=== PATIENT | female | born 1985 | race Two or more races ===

== ENCOUNTER 2017-07-16 20:53 | Emergency (ER) | payer OTHER ==
[~2017-07-16] VITALS: Ht 165.1 cm; Wt 59.0 kg
[2017-07-17] MEDS ORDERED: PHENERGAN25 MG PO (04:50)
[2017-07-17] MEDS ORDERED: PEPCID40 MG PO (04:50)
== END 2017-07-17 04:44 | disposition home or self-care (01) ==
LOC: ER 20:53
DX: T61.771A Other fish poisoning, accidental (unintentional), initial encounter (principal); K52.1 Toxic gastroenteritis and colitis; E86.0 Dehydration; R11.2 Nausea with vomiting, unspecified; Y92.89 Other specified places as the place of occurrence of the external cause

== ENCOUNTER 2017-10-27 08:48 | Outpatient (CLI) | payer OTHER ==
[~2017-10-27 08:48] MED LIST: PEPCID40 MG PO; PHENERGAN25 MG PO
== END 2017-10-27 10:20 | disposition home or self-care (01) ==
LOC: SONOGRAMA 08:48
DX: E04.2 Nontoxic multinodular goiter (principal)

== ENCOUNTER 2018-11-11 12:31 | Outpatient (CLI) | payer OTHER ==
[~2018-11-11] VITALS: Ht 165.1 cm; Wt 63.5 kg
[2018-11-11] MEDS ORDERED: AYR SALINE NA14.1 GM NASAL (12:36)
[2018-11-11] MEDS ORDERED: AFRIN15 ML NASAL (12:36)
== END 2018-11-11 16:03 | disposition home or self-care (01) ==
LOC: OFIC 805 12:31
DX: H93.13 Tinnitus, bilateral (principal); R04.0 Epistaxis; J31.0 Chronic rhinitis

== ENCOUNTER 2021-09-04 19:31 | Emergency (ER) | payer OTHER ==
[~2021-09-04] VITALS: Ht 165.1 cm; Wt 68.0 kg
[~2021-09-04 19:31] MED LIST changes: +AFRIN15 ML NASAL; +AYR SALINE NA14.1 GM NASAL
[2021-09-04] MEDS ORDERED: NORFLEX100MG PO (22:49)
[2021-09-04] MEDS ORDERED: CYCLOBENZAPRINE10 MG PO (22:49)
[2021-09-04] MEDS ORDERED: KETO10TA2 PO (22:50)
== END 2021-09-04 22:55 | disposition home or self-care (01) ==
LOC: ER 19:31
DX: M54.9 Dorsalgia, unspecified (principal)

== ENCOUNTER 2021-11-22 08:36 | Outpatient (CLI) | payer OTHER ==
[~2021-11-22 08:36] MED LIST changes: +CYCLOBENZAPRINE10 MG PO; +KETO10TA2 PO; +NORFLEX100MG PO
== END 2021-11-22 08:39 | disposition home or self-care (01) ==
LOC: SONOGRAMA 08:36
PROVIDERS: ATTEND Pathology Anatomic Pathology & Clinical Pathology
DX: E04.1 Nontoxic single thyroid nodule (principal)

== ENCOUNTER 2024-05-24 08:17 | Outpatient (CLI) | payer OTHER | END 2024-05-24 08:20 | disposition home or self-care (01) | LOC: PRENATAL 08:17 | PROVIDERS: ATTEND Obstetrics & Gynecology Maternal & Fetal Medicine | DX: O36.80X0 Pregnancy with inconclusive fetal viability, not applicable or unspecified (principal); Z36.82 Encounter for antenatal screening for nuchal translucency; O09.519 Supervision of elderly primigravida, unspecified trimester; Z14.8 Genetic carrier of other disease; O34.10 Maternal care for benign tumor of corpus uteri, unspecified trimester; Z3A.13 13 weeks gestation of pregnancy ==

== ENCOUNTER 2024-07-05 08:46 | Outpatient (CLI) | payer OTHER | END 2024-07-05 08:47 | disposition home or self-care (01) | LOC: PRENATAL 08:46 | PROVIDERS: ATTEND Obstetrics & Gynecology Maternal & Fetal Medicine | DX: O44.00 Complete placenta previa NOS or without hemorrhage, unspecified trimester (principal); O09.519 Supervision of elderly primigravida, unspecified trimester; O34.10 Maternal care for benign tumor of corpus uteri, unspecified trimester; Z3A.20 20 weeks gestation of pregnancy ==

== ENCOUNTER 2024-09-28 08:27 | Outpatient (CLI) | payer OTHER | END 2024-09-28 08:28 | disposition home or self-care (01) | LOC: PRENATAL 08:27 | PROVIDERS: ATTEND Obstetrics & Gynecology Maternal & Fetal Medicine | DX: O26.849 Uterine size-date discrepancy, unspecified trimester (principal); O36.8199 Decreased fetal movements, unspecified trimester, other fetus; O09.519 Supervision of elderly primigravida, unspecified trimester; O34.10 Maternal care for benign tumor of corpus uteri, unspecified trimester; Z3A.32 32 weeks gestation of pregnancy ==

== ENCOUNTER 2024-11-06 22:37 | Inpatient (IN) | payer OTHER ==
[~2024-11-06] VITALS: Ht 165.1 cm; Wt 75.3 kg
[2024-11-06 21:13] VITALS: BP 123/67
[2024-11-06] MEDS ORDERED: PRENATAL CAPLE1 EAC1 PO (22:59)
[2024-11-06] MEDS ORDERED: CHILDREN'S ASPI81 MG PO (22:59)
[2024-11-06] MEDS ORDERED: VITAMIN D310 MCG/1 M PO (23:00)
[2024-11-06] MEDS ORDERED: RINGERS SOLUTION,LACTATED 1,000 ML IV SCH (23:00)
[2024-11-06] MEDS ORDERED: AMPICILLIN SODIUM 2,000 MG VIAL IV ONE (23:00)
[2024-11-06 23:23] LABS: BASO % 0.2 % (0.1-1.2); EOS # 0.19 (0.04-0.54); EOS % 1.5 % (0.7-7.0); LYMPH # 1.99 (1.18-3.74); LYMPH % 15.4 % (19.3-53.1); MEAN PLATELET VOLUME 10.60 fl (9.4-12.4); MONO # 0.94 (0.24-0.82); MONO % 7.3 % (4.7-12.5); NEUT # 9.60 (1.56-6.13); NEUT % 74.1 % (34.0-71.1); RED CELL DISTRIBUTION WIDTH 14.1 % (11.6-14.4)
[2024-11-06 23:25] VITALS: BP 138/81
[2024-11-06 23:45] LABS: INR < 0.93
[2024-11-06 23:51] LABS: ALT/SGPT 17.0 U/L (12-78); AST/SGOT 18.0 U/L (15-37); BILIRUBIN TOTAL 0.5 mg/dL (0.3-1.2); BUN CREA RATIO 15.0 (7.0-25.0); CREATININE SERUM 0.52 mg/dL (0.55-1.02); GFR 132.69; GLOBULINA 3.8 G/DL (2.4-3.5); GLUCOSE FASTING 99.0 mg/dL (65-100); OSMOLALITY SERUM 278.0 MOSM/KG (275-295)
[2024-11-07] VITALS (8 sets, daily range): BP systolic 111–136; BP diastolic 58–81
[2024-11-07] MEDS ORDERED: MORPHINE SULFATE 4 MG/ML CARTRIDGE IV ONE (02:00)
[2024-11-07 02:31] LABS: URINE APPEARANCE Clear; URINE BILIRRUBIN Negative (NEGATIVE); URINE BLOOD Moderate; URINE COLOR Yellow; URINE GLUCOSE Negative (NEGATIVE); URINE KETONE Negative (NEGATIVE); URINE LEUKOCYTE Negative; URINE NITRATE Negative; URINE PROTEIN Negative (NEGATIVE); URINE UROBILINOGEN 0.2 E.U./dl
[2024-11-07 02:34] LABS: URINE BACTERIA 111.5 uL (0.0-1933); URINE EPITHELIAL CELLS 16.1 uL (0.0-38.8); URINE RBC 232.8 uL (0.0-20.8); URINE WBC 15.9 uL (0.0-23.2)
[2024-11-07 02:45] LABS: TYPE CELLS SQUAMOUS; URINE CAST 0.29 uL (0.0-1.40)
[2024-11-07] MEDS ORDERED: AMPICILLIN SODIUM 1,000 MG VIAL IV SCH (04:00)
[2024-11-07] MEDS ORDERED: MORPHINE SULFATE 4 MG/ML VIAL IV ONE (08:00)
[2024-11-07] MEDS ORDERED: OXYTOCIN 500 ML IV SCH (09:45)
[2024-11-07] MEDS ORDERED: OXYTOCIN 20 UNITS/1000ML RL PIGGYBAG IV SCH (14:00)
[2024-11-07] MEDS ORDERED: ERYTHROMYCIN BASE OPHT 1GM EACH TUBE OP ONE (14:00)
[2024-11-07] MEDS ORDERED: CHLORHEXIDINE GLUCONATE 120 ML BOTTLE TOP ONE (14:00)
[2024-11-07] MEDS ORDERED: LIDOCAINE HCL 1% 10ML VIAL PERCUT ONE (14:00)
[2024-11-08] VITALS: BP 107/68; BP 122/73
[2024-11-08 08:15] LABS: BASO % 0.3 % (0.1-1.2); EOS # 0.09 (0.04-0.54); EOS % 0.4 % (0.7-7.0); LYMPH # 2.00 (1.18-3.74); LYMPH % 9.5 % (19.3-53.1); MEAN PLATELET VOLUME 9.70 fl (9.4-12.4); MONO # 1.12 (0.24-0.82); MONO % 5.3 % (4.7-12.5); NEUT # 17.62 (1.56-6.13); NEUT % 83.7 % (34.0-71.1); RED CELL DISTRIBUTION WIDTH 14.1 % (11.6-14.4)
[2024-11-08 08:37] VITALS: BP 126/76; O2SAT 99
[2024-11-08 18:30] VITALS: BP 118/74
[2024-11-09 00:06] VITALS: BP 121/73
[2024-11-09 08:20] VITALS: BP 120/78
[2024-11-09] MEDS ORDERED: IBU800 MG PO (08:45)
[2024-11-09] MEDS ORDERED: FUSION PLUS CA1 EACH PO (08:46)
== END 2024-11-09 11:00 | disposition home or self-care (01) | DRG 807 ==
LOC: LDR 22:37 → OB/GYN 22:37
PROVIDERS: Obstetrics & Gynecology; Specialist; ADMIT Obstetrics & Gynecology; ATTEND Obstetrics & Gynecology
PROC: 4A1HXCZ Monitoring of Products of Conception, Cardiac Rate, External Approach (ICD-10-PCS; 2024-11-06)
PROC: 10E0XZZ Delivery of Products of Conception, External Approach (ICD-10-PCS; principal; 2024-11-07)
PROC: 0W8NXZZ Division of Female Perineum, External Approach (ICD-10-PCS; 2024-11-07)
DX: O80 Encounter for full-term uncomplicated delivery (principal); Z37.0 Single live birth; Z3A.37 37 weeks gestation of pregnancy

== ENCOUNTER 2024-11-10 17:23 | Emergency (ER) | payer OTHER ==
[~2024-11-10] VITALS: Ht 165.1 cm; Wt 72.6 kg
[~2024-11-10 17:23] MED LIST changes: +CHILDREN'S ASPI81 MG PO; +FUSION PLUS CA1 EACH PO; +IBU800 MG PO; +PRENATAL CAPLE1 EAC1 PO; +VITAMIN D310 MCG/1 M PO
[2024-11-10 20:23] LABS: BASO % 0.4 % (0.1-1.2); EOS # 0.32 (0.04-0.54); EOS % 2.0 % (0.7-7.0); LYMPH # 1.77 (1.18-3.74); LYMPH % 10.8 % (19.3-53.1); MEAN PLATELET VOLUME 9.40 fl (9.4-12.4); MONO # 0.85 (0.24-0.82); MONO % 5.2 % (4.7-12.5); NEUT # 12.81 (1.56-6.13); NEUT % 78.1 % (34.0-71.1); RED CELL DISTRIBUTION WIDTH 14.1 % (11.6-14.4)
[2024-11-10 20:50] LABS: COVID-19 AG NEGATIVE (NEGATIVE)
[2024-11-10 20:52] LABS: ALT/SGPT 30.0 U/L (12-78); AST/SGOT 34.0 U/L (15-37); BILIRUBIN TOTAL 0.55 mg/dL (0.3-1.2); BUN CREA RATIO 18.0 (7.0-25.0); CREATININE SERUM 0.51 mg/dL (0.55-1.02); GFR 135.69; GLOBULINA 3.4 G/DL (2.4-3.5); GLUCOSE FASTING 93.0 mg/dL (65-100); OSMOLALITY SERUM 274.0 MOSM/KG (275-295)
[2024-11-10 21:09] LABS: URINE APPEARANCE Clear; URINE BILIRRUBIN Negative (NEGATIVE); URINE BLOOD Small; URINE COLOR Yellow; URINE GLUCOSE Negative (NEGATIVE); URINE KETONE Negative (NEGATIVE); URINE LEUKOCYTE Trace; URINE NITRATE Negative; URINE PROTEIN Negative (NEGATIVE); URINE UROBILINOGEN 0.2 E.U./dl
[2024-11-10 21:13] LABS: URINE BACTERIA 29.9 uL (0.0-1933); URINE EPITHELIAL CELLS 2.9 uL (0.0-38.8); URINE RBC 3.9 uL (0.0-20.8); URINE WBC 6.1 uL (0.0-23.2)
[2024-11-10 21:26] LABS: URINE CAST 0.00 uL (0.0-1.40)
== END 2024-11-10 22:58 | disposition home or self-care (01) ==
LOC: ER 17:29
PROVIDERS: Emergency Medicine
DX: R07.9 Chest pain, unspecified (principal); R60.0 Localized edema; O48.0 Post-term pregnancy; Z20.822 Contact with and (suspected) exposure to COVID-19

== ENCOUNTER 2025-03-28 01:12 | Inpatient (IN) | payer OTHER ==
[~2025-03-28] VITALS: Ht 165.1 cm; Wt 67.6 kg
--- NOTE | 2025-03-28 02:29 | NUR ---
PTE ALERTA Y ORIENTADA X3 REFIERE VENIR A REID DE ERMERGENCIAS DEBIDO A QUE ANDERSON DESD HACE 4 MESES QUE LIA A RENU ANDERSON ESTADO [place] Y EN ESTOS MENSAH A COMENZADO A TENER DOLOR ABDOMINAL Y MAREOS. SE MIDEN S/V Y SE UBICA.
--- NOTE | 2025-03-28 04:24 | NUR ---
DR. POLK EVALUA PTE, AL MOMENTO ORDENA ESTUDIOS DE IMAGEN YA NOTIFICADOS.
[2025-03-28] MEDS ORDERED: 0.9 % SODIUM CHLORIDE 1,000 ML IV ONE ×2 (05:30→08:45)
--- NOTE | 2025-03-28 05:30 | NUR ---
SE ORIENTA A PACIENTE SOBRE ORDEN MEDICA LA MISMA REFIERE ENTEDER Y ACEPTA.
[2025-03-28 06:15] LABS: BASO % 0.5 % (0.1-1.2); EOS # 0.05 (0.04-0.54); EOS % 0.5 % (0.7-7.0); LYMPH # 1.20 (1.18-3.74); LYMPH % 11.4 % (19.3-53.1); MEAN PLATELET VOLUME 9.30 fl (9.4-12.4); MONO # 0.45 (0.24-0.82); MONO % 4.3 % (4.7-12.5); NEUT # 8.76 (1.56-6.13); NEUT % 82.9 % (34.0-71.1); RED CELL DISTRIBUTION WIDTH 14.7 % (11.6-14.4)
[2025-03-28 06:50] LABS: INR 0.95
[2025-03-28 06:54] LABS: ALT/SGPT 14.0 U/L (12-78); AST/SGOT 14.0 U/L (15-37); BILIRUBIN TOTAL 0.5 mg/dL (0.3-1.2); BUN CREA RATIO 13.0 (7.0-25.0); CREATININE SERUM 0.63 mg/dL (0.55-1.02); GFR 105.76; GLOBULINA 4.3 G/DL (2.4-3.5); GLUCOSE FASTING 105.0 mg/dL (65-100); OSMOLALITY SERUM 280.0 MOSM/KG (275-295)
[2025-03-28 07:01] LABS: URINE APPEARANCE Clear; URINE BILIRRUBIN Negative (NEGATIVE); URINE BLOOD Large; URINE COLOR Yellow; URINE GLUCOSE Negative (NEGATIVE); URINE KETONE Negative (NEGATIVE); URINE LEUKOCYTE Negative; URINE NITRATE Negative; URINE PROTEIN Negative (NEGATIVE); URINE UROBILINOGEN 0.2 E.U./dl
[2025-03-28 07:10] LABS: URINE BACTERIA 23.9 uL (0.0-1933); URINE RBC 9.8 uL (0.0-20.8); URINE WBC 2.1 uL (0.0-23.2)
[2025-03-28 07:18] LABS: URINE CAST 0.00 uL (0.0-1.40); URINE EPITHELIAL CELLS 1.0 uL (0.0-38.8)
[2025-03-28] MEDS ORDERED: METRONIDAZOLE/SODIUM CHLORIDE 500 MG/100 ML PIGGYBACK IV SCH (08:41)
[2025-03-28] MEDS ORDERED: POVIDONE-IODINE 118 ML BOTT TOP ONE (19:15)
[2025-03-28] MEDS ORDERED: PROMETHAZINE HCL 50 MG/ML AMPUL IM PRN (20:00)
[2025-03-29 01:03] VITALS: BP 104/71; O2SAT 99
== END 2025-03-29 00:45 | disposition home or self-care (01) | DRG 743 ==
LOC: ER 01:13 → SEC-K 09:17
PROVIDERS: Preventive Medicine Public Health & General Preventive Medicine; ADMIT Obstetrics & Gynecology; ATTEND Obstetrics & Gynecology
PROC: BW21ZZZ Computerized Tomography (CT Scan) of Abdomen and Pelvis (ICD-10-PCS; 2025-03-28)
PROC: BU4CZZZ Ultrasonography of Uterus and Ovaries (ICD-10-PCS; 2025-03-28)
PROC: 0UB98ZZ Excision of Uterus, Via Natural or Artificial Opening Endoscopic (ICD-10-PCS; principal; 2025-03-28 20:00)
DX: N84.0 Polyp of corpus uteri (principal)

== ENCOUNTER 2025-04-20 01:08 | Emergency (ER) | payer OTHER ==
[~2025-04-20] VITALS: Ht 165.1 cm; Wt 68.0 kg
[2025-04-20] MEDS ORDERED: LEVALBUTEROL HCL 0.63 MG/3 ML SOLUTION IH STA (04:03)
[2025-04-20] MEDS ORDERED: MECLIZINE HCL 25 MG TABLET PO STA (04:03)
[2025-04-20] MEDS ORDERED: LEVALBUTEROL HCL 0.63 MG/3 ML SOLUTION IH SCH (04:04)
[2025-04-20] MEDS ORDERED: MECLIZINE HCL 25 MG TABLET PO ONE (04:05)
[2025-04-20] MEDS ORDERED: 0.9 % SODIUM CHLORIDE 1,000 ML IV ONE (04:15)
[2025-04-20 04:37] LABS: BASO % 0.6 % (0.1-1.2); EOS # 0.38 (0.04-0.54); EOS % 2.4 % (0.7-7.0); LYMPH # 2.48 (1.18-3.74); LYMPH % 15.8 % (19.3-53.1); MEAN PLATELET VOLUME 8.90 fl (9.4-12.4); MONO # 0.81 (0.24-0.82); MONO % 5.2 % (4.7-12.5); NEUT # 11.84 (1.56-6.13); NEUT % 75.6 % (34.0-71.1); RED CELL DISTRIBUTION WIDTH 14.6 % (11.6-14.4)
[2025-04-20 04:39] LABS: URINE APPEARANCE Clear; URINE BILIRRUBIN Negative (NEGATIVE); URINE BLOOD Negative; URINE COLOR Yellow; URINE GLUCOSE Negative (NEGATIVE); URINE KETONE Negative (NEGATIVE); URINE LEUKOCYTE Negative; URINE NITRATE Negative; URINE PROTEIN Negative (NEGATIVE); URINE UROBILINOGEN 0.2 E.U./dl
[2025-04-20 04:42] LABS: URINE BACTERIA 38.7 uL (0.0-1933); URINE EPITHELIAL CELLS 2.2 uL (0.0-38.8); URINE RBC 2.5 uL (0.0-20.8)
[2025-04-20 04:54] LABS: URINE CAST 0.00 uL (0.0-1.40); URINE WBC 1.2 uL (0.0-23.2)
[2025-04-20 04:55] LABS: COVID-19 AG NEGATIVE (NEGATIVE)
[2025-04-20 04:57] LABS: INR 0.97
[2025-04-20 05:03] LABS: ALT/SGPT 18 U/L (12-78); AST/SGOT 8 U/L (15-37); BILIRUBIN TOTAL 0.69 mg/dL (0.3-1.2); BUN CREA RATIO 46 (7.0-25.0); CREATININE SERUM 0.52 mg/dL (0.55-1.02); GFR 131.97; GLOBULINA 4.3 G/DL (2.4-3.5); GLUCOSE FASTING 103 mg/dL (65-100); OSMOLALITY SERUM 282 MOSM/KG (275-295)
[2025-04-20 05:05] LABS: HCG QUANTITATIVE < 1 mUI/mL (1-3)
[2025-04-20] MEDS ORDERED: LEVALBUTER0.63 MG/3 IH (07:28)
[2025-04-20] MEDS ORDERED: PEDIALYTE ADV1000 ML PO (07:28)
== END 2025-04-20 08:39 ==
LOC: ER 01:09
PROVIDERS: General Practice
DX: E86.0 Dehydration (principal); R42 Dizziness and giddiness; R20.2 Paresthesia of skin; R06.02 Shortness of breath

== ENCOUNTER 2025-04-26 19:28 | Emergency (ER) | payer OTHER ==
[~2025-04-26] VITALS: Ht 165.1 cm; Wt 68.0 kg
[~2025-04-26 19:28] MED LIST changes: +LEVALBUTER0.63 MG/3 IH; +PEDIALYTE ADV1000 ML PO
[2025-04-26 22:22] LABS: BASO % 0.6 % (0.1-1.2); EOS # 0.30 (0.04-0.54); EOS % 2.9 % (0.7-7.0); LYMPH # 2.38 (1.18-3.74); LYMPH % 22.8 % (19.3-53.1); MEAN PLATELET VOLUME 8.80 fl (9.4-12.4); MONO # 0.99 (0.24-0.82); MONO % 9.5 % (4.7-12.5); NEUT # 6.69 (1.56-6.13); NEUT % 63.8 % (34.0-71.1); RED CELL DISTRIBUTION WIDTH 14.4 % (11.6-14.4)
[2025-04-26 22:50] LABS: ALT/SGPT 14.0 U/L (12-78); AST/SGOT 10.0 U/L (15-37); BILIRUBIN TOTAL 0.42 mg/dL (0.3-1.2); BUN CREA RATIO 44.0 (7.0-25.0); CREATININE SERUM 0.52 mg/dL (0.55-1.02); GFR 131.97; GLOBULINA 4.0 G/DL (2.4-3.5); GLUCOSE FASTING 100.0 mg/dL (65-100); OSMOLALITY SERUM 281.0 MOSM/KG (275-295)
[2025-04-26 23:50] LABS: URINE APPEARANCE Clear; URINE BILIRRUBIN Negative (NEGATIVE); URINE BLOOD Negative; URINE COLOR Yellow; URINE GLUCOSE Negative (NEGATIVE); URINE KETONE Negative (NEGATIVE); URINE LEUKOCYTE Negative; URINE NITRATE Negative; URINE PROTEIN Negative (NEGATIVE); URINE UROBILINOGEN 0.2 E.U./dl
[2025-04-26 23:54] LABS: URINE BACTERIA 132.6 uL (0.0-1933); URINE EPITHELIAL CELLS 2.1 uL (0.0-38.8); URINE RBC 4.2 uL (0.0-20.8); URINE WBC 1.8 uL (0.0-23.2)
[2025-04-27 00:34] LABS: URINE CAST 0.00 uL (0.0-1.40)
[2025-04-27] MEDS ORDERED: 0.9 % SODIUM CHLORIDE 500 ML IV SCH (01:45)
[2025-04-27] MEDS ORDERED: PROTECT PLUS S1 EACH PO (03:51)
== END 2025-04-27 04:16 ==
LOC: ER 19:29
PROVIDERS: Preventive Medicine Public Health & General Preventive Medicine
DX: R10.84 Generalized abdominal pain (principal); E86.0 Dehydration; R42 Dizziness and giddiness; R07.89 Other chest pain; Z87.09 Personal history of other diseases of the respiratory system
CPT/HCPCS: 36415; 74177; 96365; 99283; J7030; Q9965